=== PATIENT | male | born 1980 ===

== ENCOUNTER 2016-07-18 16:05 | Emergency (ER) | payer SELFPAY ==
[2016-07-18 16:20] VITALS: TEMP 98.3
--- NOTE | 2016-07-18 16:23 | C.PDOC ---
History Of Present Illness 36 yr old male presents to the ER with complaints of left flank pain for past few days. Patient states the pain is worse with standing or sitting and digitally reproducible. 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 Patient states he put a pain reliever patch on it at home. Patient denies fever, chill, chest pain, SOB, nausea, vomiting, abdominal pain, diarrhea, dysuria, hematuria , weakness or numbness. Time Seen by Provider: 07/18/16 16:17 Chief Complaint (Nursing): Back Pain History Per: Patient History/Exam Limitations: no limitations Onset/Duration Of Symptoms: Days Current Symptoms Are (Timing): Still Present Past Medical History Reviewed: Historical Data, Nursing Documentation, Vital Signs Vital Signs: Last Vital Signs Temp 98.3 F 07/18/16 16:10 Pulse 78 07/18/16 17:07 Resp 18 07/18/16 17:07 BP 124/75 07/18/16 17:07 Pulse Ox 98 07/18/16 17:07 Family History: States: No Known Family Hx - Social History Hx Alcohol Use: No Hx Substance Use: No - Immunization History Hx Tetanus Toxoid Vaccination: No Hx Influenza Vaccination: No Hx Pneumococcal Vaccination: No Review Of Systems Except As Marked, All Systems Reviewed And Found Negative. Constitutional: Negative for: Fever, Chills Cardiovascular: Negative for: Chest Pain Respiratory: Negative for: Shortness of Breath Gastrointestinal: Negative for: Nausea, Vomiting, Abdominal Pain, Diarrhea Genitourinary: Negative for: Dysuria, Hematuria Musculoskeletal: Positive for: Back Pain (Left flank pain ) Neurological: Negative for: Weakness, Numbness Physical Exam - Physical Exam Appears: Well, Non-toxic, No Acute Distress Skin: Warm, Dry, No Rash Head: Atraumatic, Normacephalic Oral Mucosa: Moist Neck: Normal, Normal ROM, Supple Chest: Symmetrical, No Tenderness Cardiovascular: Rhythm Regular, No Murmur Respiratory: Normal Breath Sounds, No Rales, No Rhonchi, No Stridor, No Wheezing Back: Normal Inspection, No CVA Tenderness, No Paraspinal Tenderness Extremity: Normal ROM, No Swelling Neurological/Psych: Oriented x3, Normal Speech, Normal Motor ED Course And Treatment - Laboratory Results Lab Interpretation: Normal (UA neg.) O2 Sat by Pulse Oximetry: 97 - Radiology CXR: Interpreted by Me, Viewed By Me CXR Interpretation: Yes: No Acute Disease. No: Cardiomegaly, Pnemothorax - Other Rad X-Ray - Obstructive Series X-Ray: Interpreted by Me, Viewed By Me Interpretation: +FOS Reevaluation Time: 17:02 Reassessment Condition: Improved Medical Decision Making Medical Decision Making: PLAN: * X-Ray - Obstructive Series * Urinalysis * Motrin PO muscle strain vs constipation Disposition Doctor Will See Patient In The: Office Counseled Patient/Family Regarding: Studies Performed, Diagnosis - Disposition Referrals: [facility] [Outside] Disposition: HOME/ ROUTINE Disposition Time: 17:03 Condition: GOOD Additional Instructions: constipation: Drink a bottle of Mag Citrate now and re-evaluate your abdominal discomfort after using the bathroom 2-3 times. Back pain : Motrin 400-600 mg every 6 hours as needed. Instructions: Constipation (ED), Acute Low Back Pain (ED) - Clinical Impression Clinical Impression: Low back strain - Scribe Statement The provider has reviewed the documentation as recorded by the Marisol Sy Provider Attestation: All medical record entries made by the Marisol were at my direction and personally dictated by me. I have reviewed the chart and agree that the record accurately reflects my personal performance of the history, physical exam, medical decision making, and the department course for this patient. I have also personally directed, reviewed, and agree with the discharge instructions and disposition.
[2016-07-18 16:48] LABS: RBC URINE < 1 /hpf (0-3); URINE BILIRUBIN NEGATIVE (NEGATIVE); URINE BLOOD NEGATIVE (NEGATIVE); URINE COLOR Yellow (YELLOW); URINE GLUCOSE (UA) NORMAL (Normal); URINE KETONE NEGATIVE (NEGATIVE); URINE LEUKOCYTE ESTERASE NEG Leu/uL (Negative); URINE PROTEIN NEGATIVE (NEGATIVE); URINE UROBILINOGEN NORMAL mg/dL (0.2-1.0); WBC URINE 1 /hpf (0-5)
[2016-07-18 17:08] VITALS: BP 124/75; PULSE 78; RESP 18
[2016-07-18 18:09] VITALS: O2SAT 97
--- NOTE | 2016-07-19 09:13 | RAD ---
Obstructive series four views History: Left flank pain. Comparison: None available. Findings: Mild venous congestion. No focal infiltrate or effusion. Heart size within normal limits. Moderate fecal retention in the colon. Relative paucity of small bowel gas. Degenerative changes in the spine and hips. Two lobulated radiopaque densities seen projecting over the right medial aspect at the L4 vertebral body of uncertain clinical etiology. Impression: Two lobulated radiopaque densities seen projecting over the right medial aspect adjacent to the L4 vertebral body of uncertain clinical etiology. If left flank pain persists, correlation with CT scan would be helpful.
== END 2016-07-18 17:09 | disposition home or self-care (01) ==
LOC: C.ER 16:05
DX: S39.012A Strain of muscle, fascia and tendon of lower back, initial encounter (principal); X58.XXXA Exposure to other specified factors, initial encounter; Y93.89 Activity, other specified; Y92.89 Other specified places as the place of occurrence of the external cause; K59.00 Constipation, unspecified

== ENCOUNTER 2016-07-30 15:32 | Emergency (ER) | payer OTHER ==
--- NOTE | 2016-07-30 16:33 | C.PDOC ---
History Of Present Illness 36 yo male come in to repeat obstructive serial after was called from ED to return due to radiology discrepancy. Pt admits, was seen here on 07/18/16 due to left flank pain and asymptomatic now. At the time of evaluation on 07/18/16, pt reports, had reproducible Left flank pain, non-radiating and worse with back movement. Otherwise, pt denies fever, chills, abd. pain, N/V/D, UTI sx, hematuria, denies previous hx of kidney ds, saddle anesthesia, weakness, sensory or vascular deficits to B/L LEs. Time Seen by Provider: 07/30/16 15:45 Chief Complaint (Nursing): Medical Clearance History Per: Patient Past Medical History Reviewed: Historical Data, Nursing Documentation, Vital Signs Vital Signs: Last Vital Signs Temp 98.3 F 07/30/16 16:46 Pulse 81 07/30/16 16:46 Resp 19 07/30/16 16:46 BP 130/76 07/30/16 16:46 Pulse Ox 98 07/30/16 16:46 - Medical History PMH: No Chronic Diseases Family History: States: No Known Family Hx - Social History Hx Alcohol Use: No Hx Substance Use: No - Immunization History Hx Tetanus Toxoid Vaccination: No Hx Influenza Vaccination: No Hx Pneumococcal Vaccination: No Review Of Systems Except As Marked, All Systems Reviewed And Found Negative. Constitutional: Negative for: Fever, Chills Gastrointestinal: Negative for: Nausea, Vomiting, Abdominal Pain Genitourinary: Negative for: Dysuria, Frequency, Incontinence Musculoskeletal: Positive for: Back Pain. Negative for: Neck Pain Skin: Negative for: Rash, Bruising Neurological: Negative for: Weakness, Numbness Physical Exam - Physical Exam Appears: Well, Non-toxic, No Acute Distress Skin: Normal Color, Warm, No Rash Throat: Normal Neck: Normal ROM, Supple Cardiovascular: Rhythm Regular Respiratory: No Decreased Breath Sounds, No Accessory Muscle Use, No Stridor, No Wheezing Gastrointestinal/Abdominal: Soft, No Tenderness, No Distention, No Guarding Back: No CVA Tenderness, No Vertebral Tenderness Extremity: Normal ROM, No Tenderness, No Pedal Edema Neurological/Psych: Oriented x3, Normal Speech, Normal Motor, Normal Sensation, Normal Reflexes ED Course And Treatment O2 Sat by Pulse Oximetry: 97 - Other Rad Obstructive serial 07/18/16 X-Ray: Read By Radiologist Interpretation: Creator : Anatoly Crawford MD. Dictator : Anatoly Crawford MD. Core Loader : Information Systems Supervisor : Anatoly Crawford MD. Approver2 : Report Date : 2016 09:11:16. My Comment : . Obstructive series four views. History: Left flank pain. Comparison: None available. Findings: Mild venous congestion. No focal infiltrate or effusion. Heart size within normal limits. Moderate fecal retention in the colon. Relative paucity of small bowel gas. Degenerative changes in the spine and hips. Two lobulated radiopaque densities seen projecting over the right medial aspect at the L4 vertebral body of uncertain clinical etiology. Impression: Two lobulated radiopaque densities seen projecting over the right medial aspect adjacent to the L4 vertebral body of uncertain clinical etiology. If left flank pain persists, correlation with CT scan would be helpful. - CT Scan/US Obstructive serial today Other Rad Studies (CT/US): Radiology Report Reviewed CT/US Interpretation: Report Date : 07/30/2016 16:58:25. My Comment : . PROCEDURE: Radiographs of the chest and abdomen (obstructive series). HISTORY : repeat per radiology request. COMPARISON: Obstructive series performed 07/18. TECHNIQUE: AP radiograph of the chest, with upright and supine radiographs of the abdomen. FINDINGS: CHEST: Cardiomediastinal silhouette appears within normal limits. No focal consolidation, significant pleural effusion, or pneumothorax. Please note that chest x-ray has limited sensitivity for the detection of pulmonary masses. ABDOMEN AND PELVIS: Nonobstructive bowel gas pattern. Mild to moderate constipation. No definite free air. Radiopaque densities re-identified adjacent to the L4 vertebral body, possibly calcifications. No acute osseous abnormality is detected. IMPRESSION: Radiopaque densities re-identified adjacent to the L4 vertebral body, possibly calcifications. Correlate clinically. Mild to moderate constipation. Progress Note: On re-eavluation, pt is afebrile, hemodynamicalys table. Non- toxic. Ambulatory in ED with stable gait. Abd: benign. Back: (-) CVA tenderness. Imaging review and compare with old study. Results review and discussed with pt, (+) constipation, possible calcification. Pt advised. ref. to F/U with PMD, GI in 2-3 days for re-eavl. return if any new changes. Disposition Counseled Patient/Family Regarding: Studies Performed, Diagnosis, Need For Followup - Disposition Referrals: [facility] [Outside] Disposition: HOME/ ROUTINE Disposition Time: 16:20 Condition: STABLE Additional Instructions: Follow up with PM in 2-3 days for re-evaluation. return to ED if any new changes. Instructions: Back Pain (ED), Constipation (ED) - Clinical Impression Clinical Impression: Left flank pain, Constipation
[2016-07-30 16:47] VITALS: BP 130/76; PULSE 81; RESP 19; TEMP 98.3
--- NOTE | 2016-07-30 17:00 | RAD ---
PROCEDURE: Radiographs of the chest and abdomen (obstructive series) HISTORY: repeat per radiology request COMPARISON: Obstructive series performed 07/18/16 TECHNIQUE: AP radiograph of the chest, with upright and supine radiographs of the abdomen. FINDINGS: CHEST: Cardiomediastinal silhouette appears within normal limits. No focal consolidation, significant pleural effusion, or pneumothorax. Please note that chest x-ray has limited sensitivity for the detection of pulmonary masses. ABDOMEN AND PELVIS: Nonobstructive bowel gas pattern. Mild to moderate constipation. No definite free air. Radiopaque densities re-identified adjacent to the L4 vertebral body, possibly calcifications. No acute osseous abnormality is detected. IMPRESSION: Radiopaque densities re-identified adjacent to the L4 vertebral body, possibly calcifications. Correlate clinically. Mild to moderate constipation.
[2016-07-30 18:34] VITALS: O2SAT 97
== END 2016-07-30 16:46 | disposition home or self-care (01) ==
LOC: C.ER 15:32
DX: K59.00 Constipation, unspecified (principal); R10.9 Unspecified abdominal pain